=== PATIENT | female | born 1965 | race Two or more races ===

== ENCOUNTER 2016-11-19 08:54 | Day surgery (SDC) | payer MEDICARE, MEDICAID ==
[~2016-11-19 08:54] MED LIST: ACETAMINOPHEN-1 EAC3 PO; ALREX5 ML OP; BUPROBAN150 MG PO; BUPROPION XL150 M1 PO; BUPROPION XL300 M1 PO; CELECOXIB200 MG PO; CELEXA20 MG PO; CIPRO500 M2 PO; CLONAZEPAM0.5 M2 PO; FUROSEMIDE20 M1 PO; HYDROMORPHONE HC2 M1 PO; LORAZEPAM0.5 M1 PO; LORAZEPAM0.5 MG PO; MIRTAZAPINE15 M1 PO; OMEPRAZOLE20 M2 PO; OMEPRAZOLE20 M3 PO; ONDANSETRON HCL8 M1 PO; PAZEO2.5 ML EACH EYE; PRAZOSIN HCL5 M1 PO; RISPERDAL1 M1 PO; TRAZODONE50 MG PO; VITAMIN D35000 UNI2 PO; ZOFRAN ODT4 MG PO
[2016-11-19] MEDS ORDERED: PREMPRO 0.45-11 EACH PO (09:55)
[2016-11-19] MEDS ORDERED: ZOLPIDEM TARTRA10 M2 PO (09:56)
[2016-11-19] MEDS ORDERED: ZOFRAN8 M1 PO (09:57)
[2016-11-19] MEDS ORDERED: POTASSIUM CHLO20 ME3 PO (09:58)
[2016-11-19 10:27] LABS: ANION GAP 10 mmol/L (0-20); BLOOD UREA NITROGEN 12 mg/dl (6-24); CALCIUM 8.3 mg/dl (8.5-10.5); CARBON DIOXIDE-VENOUS 26 mmol/L (22-32); CHLORIDE 108 mmol/l (96-110); CREATININE 0.82 mg/dl (0.50-1.10); GLUCOSE 135 mg/dL (70-110); POTASSIUM 3.9 mmol/L (3.7-5.1); SODIUM 140 mmol/L (135-145); eGFR VALUE FOR BLACK >90 mL/Min
[2016-11-19 10:29] LABS: PROTHROMBIN TIME 11.3 SECONDS (9.0-13.6)
[2016-12-06] MEDS ORDERED: DILAUDID2 M1 PO (12:52)
[2016-12-06] MEDS ORDERED: CLARITIN10 M6 PO (12:54)
[2016-12-06] MEDS ORDERED: DELTASONE20 MG PO (12:56)
[2016-12-06] MEDS ORDERED: PREMPRO 0.45-11 EACH PO (12:58)
[2016-12-06] MEDS ORDERED: COMPAZINE10 MG PO (12:58)
== END 2016-11-19 14:15 ==
LOC: SHSB 08:54
PROVIDERS: Internal Medicine Medical Oncology
PROC: 0JH60XZ Insertion of Tunneled Vascular Access Device into Chest Subcutaneous Tissue and Fascia, Open Approach (ICD-10-PCS; principal; 2016-11-19)
PROC: 05HM33Z Insertion of Infusion Device into Right Internal Jugular Vein, Percutaneous Approach (ICD-10-PCS; 2016-11-19)
PROC: B543ZZA Ultrasonography of Right Jugular Veins, Guidance (ICD-10-PCS; 2016-11-19)
DX: C96.4 Sarcoma of dendritic cells (accessory cells) (principal); I10 Essential (primary) hypertension; Z88.5 Allergy status to narcotic agent; Z79.899 Other long term (current) drug therapy; Z98.890 Other specified postprocedural states
CPT/HCPCS: C1788; J0690; J2250; J3010; J7030

== ENCOUNTER 2016-12-06 13:46 | Inpatient (IN) | payer MEDICARE, MEDICAID ==
[2016-12-06 13:21] LABS: BASO % 1.8 % (0-2); BASO ABSOLUTE COUNT 0.1 tho/cmm (0.0-0.2); EOS % 1.6 % (0-7); EOSINOPHIL ABSOLUTE COUNT 0.1 tho/cmm (0.0-0.7); HCT-HEMATOCRIT 31.9 % (34.0-49.0); HGB-HEMOGLOBIN 10.4 gm/dl (12.0-15.5); IMMATURE GRANULOCYTES ABSOLUTE 0.14 tho/cmm (0-0.03); IMMATURE GRANULOCYTES PERCENT 2.8 % (0-0.3); LYMPH % 11.4 % (20-45); LYMPH ABSOLUTE COUNT 0.6 tho/cmm (0.8-4.5); MCHC MEAN CORPUSCULAR HGB CONC 32.6 % (32.0-36.0); MCV (MEAN CELL VOLUME) 88.9 fl (82.0-96.0); MEAN PLATELET VOLUME 10.1 cmc (9.4-12.4); MONO % 16.9 % (0-12); MONOCYTE ABSOLUTE COUNT 0.8 tho/cmm (0.0-1.2); NEUTROPHIL ABSOLUTE COUNT 3.3 tho/cmm (1.6-8.0); NEUTROPHIL-AUTOMATED 3.3 tho/cmm (1.6-8.0); NEUTROPHILS % 65.5 % (40-80); PLATELET COUNT 227 tho/cmm (150-450); RED BLOOD COUNT 3.59 mil/cmm (4.00-5.20); RED CELL DISTRIBUTION WIDTH 13.3 % (12.4-16.4)
[2016-12-06 13:34] LABS: ANION GAP 14 mmol/L (0-20); BLOOD UREA NITROGEN 8 mg/dl (6-24); CALCIUM 8.1 mg/dl (8.5-10.5); CARBON DIOXIDE-VENOUS 26 mmol/L (22-32); CHLORIDE 107 mmol/l (96-110); CREATININE 0.74 mg/dl (0.50-1.10); GLUCOSE 178 mg/dL (70-110); POTASSIUM 3.9 mmol/L (3.7-5.1); SODIUM 143 mmol/L (135-145); eGFR VALUE FOR BLACK >90 mL/Min
[2016-12-06 13:45] LABS: ALB/GLOB RATIO 0.9 (0.8-2.0); ALBUMIN 2.9 g/dl (3.5-5.0); ALKALINE PHOSPHATASE 79 U/L (33-138); ALT/SGPT 26 U/L (12-78); AST/SGOT 18 U/L (10-40); BILIRUBIN,DIRECT <0.1 mg/dl (0.0-0.3); BILIRUBIN,INDIRECT 0.1 mg/dL (0.0-1.0); BILIRUBIN,TOTAL 0.2 mg/dl (0-1.5); LIPASE 45 U/L (73-393)
[~2016-12-06 13:46] MED LIST changes: +CLARITIN10 M6 PO; +COMPAZINE10 MG PO; +DELTASONE20 MG PO; +DILAUDID2 M1 PO; +POTASSIUM CHLO20 ME3 PO; +PREMPRO 0.45-11 EACH PO; +ZOFRAN8 M1 PO; +ZOLPIDEM TARTRA10 M2 PO
[2016-12-06 13:57] LABS: PROCALCITONIN <0.05 ng/ml (0.05-0.09)
[2016-12-06] MEDS ORDERED: CYCLOPHOSPHAMIDE IVPB (14:06)
[2016-12-06] MEDS ORDERED: DOXORUBICIN HCL IVP (14:07)
[2016-12-06] MEDS ORDERED: [UNRECOGNIZED DRUG - OTHER] IVP (14:09)
[2016-12-06] MEDS ORDERED: ALOXI0.25 MG/5 IVP (14:12)
[2016-12-06] MEDS ORDERED: DEXAMETHAS10 MG/1 M1 IVPB (14:14)
[2016-12-06] MEDS ORDERED: EMEND150 MG IVPB (14:16)
[2016-12-06] MEDS ORDERED: DIPHENHYDR50 MG/1 M2 IV (14:17)
[2016-12-06] MEDS ORDERED: SOLU-MEDRO125 MG/23 IV (14:17)
[2016-12-08 07:34] LABS: BASO ABSOLUTE COUNT 0.1 tho/cmm (0.0-0.2); EOS % 0.8 % (0-7); HCT-HEMATOCRIT 32.9 % (34.0-49.0); HGB-HEMOGLOBIN 10.9 gm/dl (12.0-15.5); IMMATURE GRANULOCYTES ABSOLUTE 0.05 tho/cmm (0-0.03); LYMPH % 12.3 % (20-45); LYMPH ABSOLUTE COUNT 0.6 tho/cmm (0.8-4.5); MCH (MEAN CORPUSCULAR HGB) 29.3 pg (28.0-32.0); MCHC MEAN CORPUSCULAR HGB CONC 33.1 % (32.0-36.0); MCV (MEAN CELL VOLUME) 88.4 fl (82.0-96.0); MEAN PLATELET VOLUME 9.6 cmc (9.4-12.4); MONO % 24.2 % (0-12); MONOCYTE ABSOLUTE COUNT 1.2 tho/cmm (0.0-1.2); NEUTROPHILS % 60.7 % (40-80); PLATELET COUNT 292 tho/cmm (150-450); RED BLOOD COUNT 3.72 mil/cmm (4.00-5.20); RED CELL DISTRIBUTION WIDTH 13.7 % (12.4-16.4)
[2016-12-09 05:09] LABS: BASO % 0.1 % (0-2); HCT-HEMATOCRIT 34.1 % (34.0-49.0); HGB-HEMOGLOBIN 11.2 gm/dl (12.0-15.5); IMMATURE GRANULOCYTES ABSOLUTE 0.09 tho/cmm (0-0.03); IMMATURE GRANULOCYTES PERCENT 0.9 % (0-0.3); LYMPH % 4.8 % (20-45); LYMPH ABSOLUTE COUNT 0.5 tho/cmm (0.8-4.5); MCH (MEAN CORPUSCULAR HGB) 29.1 pg (28.0-32.0); MCHC MEAN CORPUSCULAR HGB CONC 32.8 % (32.0-36.0); MCV (MEAN CELL VOLUME) 88.6 fl (82.0-96.0); MEAN PLATELET VOLUME 9.7 cmc (9.4-12.4); MONO % 2.7 % (0-12); MONOCYTE ABSOLUTE COUNT 0.3 tho/cmm (0.0-1.2); NEUTROPHIL ABSOLUTE COUNT 9.3 tho/cmm (1.6-8.0); NEUTROPHIL-AUTOMATED 9.3 tho/cmm (1.6-8.0); NEUTROPHILS % 91.5 % (40-80); PLATELET COUNT 323 tho/cmm (150-450); RED BLOOD COUNT 3.85 mil/cmm (4.00-5.20); RED CELL DISTRIBUTION WIDTH 13.8 % (12.4-16.4)
[2016-12-09 05:12] LABS: WHITE BLOOD COUNT 10.2 tho/cmm (4.0-10.0)
[2016-12-10 06:24] LABS: BASO % 0.1 % (0-2); HCT-HEMATOCRIT 33.1 % (34.0-49.0); IMMATURE GRANULOCYTES PERCENT 0.8 % (0-0.3); LYMPH % 4.1 % (20-45); LYMPH ABSOLUTE COUNT 0.5 tho/cmm (0.8-4.5); MCH (MEAN CORPUSCULAR HGB) 29.3 pg (28.0-32.0); MCHC MEAN CORPUSCULAR HGB CONC 33.2 % (32.0-36.0); MEAN PLATELET VOLUME 9.7 cmc (9.4-12.4); MONO % 6.4 % (0-12); MONOCYTE ABSOLUTE COUNT 0.8 tho/cmm (0.0-1.2); NEUTROPHIL ABSOLUTE COUNT 11.3 tho/cmm (1.6-8.0); NEUTROPHIL-AUTOMATED 11.3 tho/cmm (1.6-8.0); NEUTROPHILS % 88.6 % (40-80); PLATELET COUNT 264 tho/cmm (150-450); RED BLOOD COUNT 3.76 mil/cmm (4.00-5.20); RED CELL DISTRIBUTION WIDTH 13.9 % (12.4-16.4); WHITE BLOOD COUNT 12.8 tho/cmm (4.0-10.0)
[2016-12-10] MEDS ORDERED: ZITHROMAX250 M1 PO (11:05)
[2016-12-10] MEDS ORDERED: IPRAT-ALBUT 0.5-3 ML AERO NEB ×2 (11:07→11:08)
[2016-12-10] MEDS ORDERED: BROVANA15 MCG/22 AERO NEB (11:08)
[2016-12-10] MEDS ORDERED: PROTONIX40 M2 PO (11:12)
[2016-12-10] MEDS ORDERED: PREDNISONE10 M1 PO (11:14)
[2016-12-10] MEDS ORDERED: SYMBICORT 160-1 PUFF INH (14:45)
== END 2016-12-10 15:10 | DRG 391 ==
LOC: EDMED 13:46 → EMR2 14:48 → 5WF 16:43
PROVIDERS: Emergency Medicine; Internal Medicine Hematology & Oncology; ADMIT Internal Medicine Medical Oncology
DX: K21.9 Gastro-esophageal reflux disease without esophagitis (principal); J96.01 Acute respiratory failure with hypoxia; C22.8 Malignant neoplasm of liver, primary, unspecified as to type; J37.0 Chronic laryngitis; K74.60 Unspecified cirrhosis of liver; I10 Essential (primary) hypertension; Z86.19 Personal history of other infectious and parasitic diseases; Z92.3 Personal history of irradiation; F41.9 Anxiety disorder, unspecified; F32.9 Major depressive disorder, single episode, unspecified; Z09 Encounter for follow-up examination after completed treatment for conditions other than malignant neoplasm; Z88.8 Allergy status to other drugs, medicaments and biological substances; Z87.891 Personal history of nicotine dependence
CPT/HCPCS: G0378; J1100; Q9967

== ENCOUNTER 2016-12-19 21:32 | Observation (INO) | payer MEDICARE, MEDICAID ==
[~2016-12-19 21:32] MED LIST changes: +ALOXI0.25 MG/5 IVP; +BROVANA15 MCG/22 AERO NEB; +CYCLOPHOSPHAMIDE IVPB; +DEXAMETHAS10 MG/1 M1 IVPB; +DIPHENHYDR50 MG/1 M2 IV; +DOXORUBICIN HCL IVP; +EMEND150 MG IVPB; +IPRAT-ALBUT 0.5-3 ML AERO NEB; +PREDNISONE10 M1 PO; +PROTONIX40 M2 PO; +SOLU-MEDRO125 MG/23 IV; +SYMBICORT 160-1 PUFF INH; +ZITHROMAX250 M1 PO; +[UNRECOGNIZED DRUG - OTHER] IVP
[2016-12-20 00:09] LABS: BASO % 0.2 % (0-2); EOS % 0.9 % (0-7); EOSINOPHIL ABSOLUTE COUNT 0.1 tho/cmm (0.0-0.7); HCT-HEMATOCRIT 34.1 % (34.0-49.0); HGB-HEMOGLOBIN 11.3 gm/dl (12.0-15.5); IMMATURE GRANULOCYTES ABSOLUTE 0.19 tho/cmm (0-0.03); IMMATURE GRANULOCYTES PERCENT 1.5 % (0-0.3); LYMPH % 10.4 % (20-45); LYMPH ABSOLUTE COUNT 1.3 tho/cmm (0.8-4.5); MCH (MEAN CORPUSCULAR HGB) 29.3 pg (28.0-32.0); MCHC MEAN CORPUSCULAR HGB CONC 33.1 % (32.0-36.0); MCV (MEAN CELL VOLUME) 88.3 fl (82.0-96.0); MEAN PLATELET VOLUME 9.6 cmc (9.4-12.4); MONO % 9.9 % (0-12); MONOCYTE ABSOLUTE COUNT 1.3 tho/cmm (0.0-1.2); NEUTROPHIL ABSOLUTE COUNT 9.9 tho/cmm (1.6-8.0); NEUTROPHIL-AUTOMATED 9.9 tho/cmm (1.6-8.0); NEUTROPHILS % 77.1 % (40-80); PLATELET COUNT 139 tho/cmm (150-450); RED BLOOD COUNT 3.86 mil/cmm (4.00-5.20); RED CELL DISTRIBUTION WIDTH 14.1 % (12.4-16.4); WHITE BLOOD COUNT 12.8 tho/cmm (4.0-10.0)
[2016-12-20 00:24] LABS: ANION GAP 11 mmol/L (0-20); BLOOD UREA NITROGEN 9 mg/dl (6-24); CALCIUM 8.1 mg/dl (8.5-10.5); CARBON DIOXIDE-VENOUS 26 mmol/L (22-32); CHLORIDE 101 mmol/l (96-110); CREATININE 0.82 mg/dl (0.50-1.10); GLUCOSE 220 mg/dL (70-110); SODIUM 134 mmol/L (135-145); eGFR VALUE FOR BLACK >90 mL/Min
[2016-12-20 02:23] LABS: FIBRINOGEN 373 mg/dl (200-400)
[2016-12-20 02:24] LABS: D-DIMER 2704 ng/mlFEU (<500)
[2016-12-20 02:27] LABS: ANTI THROMBIN III 81 % (80-120)
[2016-12-21 05:51] LABS: BASO % 0.2 % (0-2); EOS % 0.9 % (0-7); EOSINOPHIL ABSOLUTE COUNT 0.1 tho/cmm (0.0-0.7); HCT-HEMATOCRIT 33.2 % (34.0-49.0); HGB-HEMOGLOBIN 10.8 gm/dl (12.0-15.5); IMMATURE GRANULOCYTES ABSOLUTE 0.06 tho/cmm (0-0.03); IMMATURE GRANULOCYTES PERCENT 0.7 % (0-0.3); LYMPH ABSOLUTE COUNT 0.4 tho/cmm (0.8-4.5); MCHC MEAN CORPUSCULAR HGB CONC 32.5 % (32.0-36.0); MEAN PLATELET VOLUME 9.9 cmc (9.4-12.4); MONO % 14.4 % (0-12); MONOCYTE ABSOLUTE COUNT 1.3 tho/cmm (0.0-1.2); NEUTROPHIL ABSOLUTE COUNT 6.9 tho/cmm (1.6-8.0); NEUTROPHIL-AUTOMATED 6.9 tho/cmm (1.6-8.0); NEUTROPHILS % 78.8 % (40-80); PLATELET COUNT 118 tho/cmm (150-450); RED BLOOD COUNT 3.73 mil/cmm (4.00-5.20); RED CELL DISTRIBUTION WIDTH 14.1 % (12.4-16.4); WHITE BLOOD COUNT 8.8 tho/cmm (4.0-10.0)
[2016-12-21 05:52] LABS: INR 0.9 INR (0.9-1.1)
[2016-12-21 06:03] LABS: ALB/GLOB RATIO 0.7 (0.8-2.0); ALBUMIN 2.7 g/dl (3.5-5.0); ALKALINE PHOSPHATASE 66 U/L (33-138); ALT/SGPT 31 U/L (12-78); ANION GAP 14 mmol/L (0-20); AST/SGOT 22 U/L (10-40); BILIRUBIN,TOTAL 0.3 mg/dl (0-1.5); BLOOD UREA NITROGEN 11 mg/dl (6-24); CALCIUM 8.6 mg/dl (8.5-10.5); CARBON DIOXIDE-VENOUS 26 mmol/L (22-32); CHLORIDE 104 mmol/l (96-110); CREATININE 0.73 mg/dl (0.50-1.10); GLUCOSE 194 mg/dL (70-110); POTASSIUM 4.1 mmol/L (3.7-5.1); SODIUM 140 mmol/L (135-145); eGFR VALUE FOR BLACK >90 mL/Min
[2016-12-21] MEDS ORDERED: XARELTO15 M1 PO (17:38)
[2016-12-21] MEDS ORDERED: XARELTO20 M1 PO (17:39)
== END 2016-12-21 18:23 ==
LOC: EDMED 21:32 → EMR2 12-20 01:56 → 5WF 12-20 02:28
PROVIDERS: Emergency Medicine; Internal Medicine Infectious Disease; Internal Medicine Medical Oncology; ADMIT Internal Medicine Medical Oncology
PROC: 0JPT0XZ Removal of Tunneled Vascular Access Device from Trunk Subcutaneous Tissue and Fascia, Open Approach (ICD-10-PCS; principal; 2016-12-21)
PROC: 05HC33Z Insertion of Infusion Device into Left Basilic Vein, Percutaneous Approach (ICD-10-PCS; 2016-12-21)
PROC: B54NZZA Ultrasonography of Left Upper Extremity Veins, Guidance (ICD-10-PCS; 2016-12-21)
DX: T82.868A Thrombosis due to vascular prosthetic devices, implants and grafts, initial encounter (principal); I10 Essential (primary) hypertension; C96.4 Sarcoma of dendritic cells (accessory cells); T38.0X5A Adverse effect of glucocorticoids and synthetic analogues, initial encounter; R73.9 Hyperglycemia, unspecified; D64.9 Anemia, unspecified; R10.9 Unspecified abdominal pain; F41.9 Anxiety disorder, unspecified; F32.9 Major depressive disorder, single episode, unspecified; Z79.1 Long term (current) use of non-steroidal anti-inflammatories (NSAID); Z79.2 Long term (current) use of antibiotics; Z79.899 Other long term (current) drug therapy; Z88.5 Allergy status to narcotic agent; Z87.891 Personal history of nicotine dependence; Z92.3 Personal history of irradiation; Z86.19 Personal history of other infectious and parasitic diseases; Z98.890 Other specified postprocedural states
CPT/HCPCS: C1751; G0378; J1170; J1650; J2250; J2270; J2405; J3010; J7030; Q9967

== ENCOUNTER 2017-01-04 08:00 | Day surgery (SDC) | payer MEDICARE, MEDICAID ==
[~2017-01-04 08:00] MED LIST changes: +XARELTO15 M1 PO; +XARELTO20 M1 PO
[2017-01-04 08:42] LABS: HCT-HEMATOCRIT 34.2 % (34.0-49.0); HGB-HEMOGLOBIN 11.3 gm/dl (12.0-15.5); MCH (MEAN CORPUSCULAR HGB) 29.2 pg (28.0-32.0); MCV (MEAN CELL VOLUME) 88.4 fl (82.0-96.0); MEAN PLATELET VOLUME 9.6 cmc (9.4-12.4); NEUTROPHIL-AUTOMATED 2.6 tho/cmm (1.6-8.0); PLATELET COUNT 211 tho/cmm (150-450); RED BLOOD COUNT 3.87 mil/cmm (4.00-5.20); RED CELL DISTRIBUTION WIDTH 14.7 % (12.4-16.4); WHITE BLOOD COUNT 4.5 tho/cmm (4.0-10.0)
[2017-01-04 08:43] LABS: INR 0.9 INR (0.9-1.1); PROTHROMBIN TIME 10.9 SECONDS (9.0-13.6)
[2017-01-04 08:50] LABS: ANION GAP 14 mmol/L (0-20); BLOOD UREA NITROGEN 10 mg/dl (6-24); CALCIUM 8.2 mg/dl (8.5-10.5); CARBON DIOXIDE-VENOUS 25 mmol/L (22-32); CHLORIDE 108 mmol/l (96-110); GLUCOSE 140 mg/dL (70-110); POTASSIUM 3.9 mmol/L (3.7-5.1); SODIUM 143 mmol/L (135-145); eGFR VALUE FOR BLACK >90 mL/Min
[2017-01-04 09:55] LABS: BAND % 11 % (0-20); BAND ABSOLUTE COUNT 0.5 tho/cmm (0-2.0); EOSINOPHIL % 3 % (0-7)
== END 2017-01-04 12:15 ==
LOC: RADSP 08:00 → SHSB 08:01
PROVIDERS: Radiology Diagnostic Radiology
PROC: 0JH60XZ Insertion of Tunneled Vascular Access Device into Chest Subcutaneous Tissue and Fascia, Open Approach (ICD-10-PCS; principal; 2017-01-04)
PROC: 05HN33Z Insertion of Infusion Device into Left Internal Jugular Vein, Percutaneous Approach (ICD-10-PCS; 2017-01-04)
PROC: B544ZZA Ultrasonography of Left Jugular Veins, Guidance (ICD-10-PCS; 2017-01-04)
DX: C96.4 Sarcoma of dendritic cells (accessory cells) (principal); I87.1 Compression of vein; B18.2 Chronic viral hepatitis C; K74.60 Unspecified cirrhosis of liver; R10.9 Unspecified abdominal pain; F41.8 Other specified anxiety disorders; D69.6 Thrombocytopenia, unspecified; Z79.01 Long term (current) use of anticoagulants; Z79.1 Long term (current) use of non-steroidal anti-inflammatories (NSAID); Z79.899 Other long term (current) drug therapy; Z88.5 Allergy status to narcotic agent; Z87.891 Personal history of nicotine dependence; Z86.718 Personal history of other venous thrombosis and embolism; Z98.890 Other specified postprocedural states
CPT/HCPCS: C1788; J0690; J2250; J3010; J7030; Q9967

== ENCOUNTER 2017-01-15 18:30 | Emergency (ER) | payer MEDICARE, MEDICAID ==
[2017-01-15 19:32] LABS: HCT-HEMATOCRIT 34.6 % (34.0-49.0); HGB-HEMOGLOBIN 11.5 gm/dl (12.0-15.5); MCH (MEAN CORPUSCULAR HGB) 29.1 pg (28.0-32.0); MCHC MEAN CORPUSCULAR HGB CONC 33.2 % (32.0-36.0); MCV (MEAN CELL VOLUME) 87.6 fl (82.0-96.0); MEAN PLATELET VOLUME 9.3 cmc (9.4-12.4); NEUTROPHIL-AUTOMATED 13.7 tho/cmm (1.6-8.0); RED BLOOD COUNT 3.95 mil/cmm (4.00-5.20); RED CELL DISTRIBUTION WIDTH 14.9 % (12.4-16.4); WHITE BLOOD COUNT 15.2 tho/cmm (4.0-10.0)
[2017-01-15 19:33] LABS: BASO % 0.1 % (0-2); EOS % 0.2 % (0-7); IMMATURE GRANULOCYTES ABSOLUTE 1.03 tho/cmm (0-0.03); IMMATURE GRANULOCYTES PERCENT 6.8 % (0-0.3); LYMPH % 2.8 % (20-45); LYMPH ABSOLUTE COUNT 0.4 tho/cmm (0.8-4.5); MONO % 0.5 % (0-12); MONOCYTE ABSOLUTE COUNT 0.1 tho/cmm (0.0-1.2); NEUTROPHIL ABSOLUTE COUNT 13.7 tho/cmm (1.6-8.0); NEUTROPHILS % 89.6 % (40-80)
[2017-01-15 19:37] LABS: INR 1.7 INR (0.9-1.1); PROTHROMBIN TIME 20.6 SECONDS (9.0-13.6)
[2017-01-15 19:47] LABS: URINE BILIRUBIN NEGATIVE (NEG); URINE BLOOD MODERATE (NEG); URINE GLUCOSE (UA) NEGATIVE (NEG); URINE KETONE NEGATIVE (NEG); URINE LEUKOCYTE ESTERASE NEGATIVE (NEG); URINE NITRITE NEGATIVE (NEG); URINE PROTEIN NEGATIVE (NEG); URINE SPECIFIC GRAVITY 1.005 (1.003-1.030)
[2017-01-15 19:47] LABS: ALBUMIN 3.2 g/dl (3.5-5.0); ALKALINE PHOSPHATASE 106 U/L (33-138); ALT/SGPT 26 U/L (12-78); AMYLASE 16 U/L (20-90); ANION GAP 13 mmol/L (0-20); AST/SGOT 16 U/L (10-40); BILIRUBIN,TOTAL 0.4 mg/dl (0-1.5); BLOOD UREA NITROGEN 13 mg/dl (6-24); CALCIUM 8.7 mg/dl (8.5-10.5); CARBON DIOXIDE-VENOUS 23 mmol/L (22-32); CHLORIDE 107 mmol/l (96-110); CREATININE 0.65 mg/dl (0.50-1.10); GLUCOSE 152 mg/dL (70-110); LIPASE 50 U/L (73-393); POTASSIUM 4.2 mmol/L (3.7-5.1); SODIUM 139 mmol/L (135-145); eGFR VALUE FOR BLACK >90 mL/Min
[2017-01-15 19:48] LABS: URINE APPEARANCE CLEAR; URINE COLOR YELLOW
[2017-01-15 19:55] LABS: URINE WBC 0 /[HPF] (0-5)
[2017-01-15 20:02] LABS: PLATELET COUNT 91 tho/cmm (150-450)
[2017-01-15] MEDS ORDERED: ZOFRAN ODT4 MG PO (22:02)
== END 2017-01-15 22:08 ==
LOC: EDMED 18:30
PROVIDERS: Emergency Medicine
DX: R11.2 Nausea with vomiting, unspecified (principal); R19.7 Diarrhea, unspecified; D72.829 Elevated white blood cell count, unspecified; K74.60 Unspecified cirrhosis of liver; C53.0 Malignant neoplasm of endocervix; Z79.899 Other long term (current) drug therapy; Z88.5 Allergy status to narcotic agent; F17.290 Nicotine dependence, other tobacco product, uncomplicated
CPT/HCPCS: J1170; J2405; J7030